=== PATIENT | female | born 1945 | race Asian ===

== ENCOUNTER 2017-06-13 21:38 | Emergency (ER) | payer OTHER, MEDICAID ==
[~2017-06-13] VITALS: Ht 154.9 cm; Wt 64.9 kg
[2017-06-13] MEDS ORDERED: FOLIC ACID1 MG ORAL (21:55)
[2017-06-13] MEDS ORDERED: LANTUS5 UNITS SUBQ (21:55)
[2017-06-13] MEDS ORDERED: CLONIDINE1 EAC1 TD (21:55)
[2017-06-13] MEDS ORDERED: METOPROLOL SUCC25 MG ORAL (21:55)
[2017-06-13] MEDS ORDERED: HYDROCHLOROTH12.5 M2 ORAL (21:55)
[2017-06-13] MEDS ORDERED: METFORMIN HCL500 M1 ORAL (21:55)
[2017-06-13] MEDS ORDERED: ASPIR 8181 MG ORAL (21:55)
[2017-06-13 22:09] VITALS: BP 171/49
[2017-06-13] MEDS ORDERED: Ketorolac 30mg Inj IV ONE (22:30)
[2017-06-13 22:35] LABS: BASOPHILS % (AUTO) 1.1 % (0.0-2.0); EOSINOPHILS % (AUTO) 2.3 % (0.0-3.0); LYMPHOCYTES % (AUTO) 38.6 % (20.0-45.0); MEAN CORPUSCULAR HEMOGLOBIN 28.8 PG (27.0-31.0); MEAN CORPUSCULAR HGB CONC 33.2 G/DL (32.0-36.0); MEAN CORPUSCULAR VOLUME 87 FL (80-99); MEAN PLATELET VOLUME 7.6 FL (6.5-10.1); MONOCYTES % (AUTO) 6.9 % (1.0-10.0); NEUTROPHILS % (AUTO) 51.1 % (45.0-75.0); PLATELET COUNT 251 K/UL (150-450); RED BLOOD COUNT 4.19 M/UL (4.20-5.40); RED CELL DISTRIBUTION WIDTH 12.1 % (11.6-14.8)
[2017-06-13 22:39] LABS: APPEARANCE,URINE CLEAR; KETONES,URINE NEGATIVE (NEGATIVE); LEUKOCYTE ESTERASE ,URINE 1+ (NEGATIVE); NITRITE,URINE NEGATIVE (NEGATIVE); PH,URINE 7 (4.5-8.0); PROTEIN,URINE NEGATIVE (NEGATIVE); UROBILINOGEN,URINE NORMAL MG/DL (0.0-1.0)
[2017-06-13 22:50] LABS: ALANINE AMINOTRANSFERASE 9 U/L (3-33); ALBUMIN/GLOBULIN RATIO 1.2 (1.0-2.7); ANION GAP 14 (5-15); ASPARTATE AMINO TRANSFERASE 18 U/L (5-40); CALCIUM 9.4 mg/dL (8.6-10.2); CARBON DIOXIDE 27 mEQ/L (20-30); CHLORIDE 97 mEQ/L (98-107); CREATININE 1.6 mg/dL (0.5-0.9); HEMOLYSIS 2; LIPASE 65 U/L (< 60); POTASSIUM 3.5 mEQ/L (3.4-4.9); SODIUM 138 mEQ/L (135-145); TOTAL PROTEIN 7.5 g/dL (6.6-8.7)
[2017-06-13 22:52] LABS: RBC,URINE 0-2 /HPF (0 - 2); SQUAMOUS EPITHELIAL CELL,UR FEW /LPF (NONE/OCC)
[2017-06-13 22:53] LABS: TRANSITIONAL EPI CELLS,URINE FEW /LPF
--- NOTE | 2017-06-13 23:06 | Emergency Room Report ---
History of Present Illness General Chief Complaint: Abdominal Pain Source: Patient Present Illness HPI Is a 72-year-old female with history hypertension. She presents with chief complaint of left upper quadrant pain. Onset for last 5 days. Worse with movement. Worse with palpation. No nausea no vomiting. No fever or chills. No diaphoresis. No chest pain. No nausea or vomiting. No rash. Pain is 7/10. Allergies: Coded Allergies: No Known Allergies (Unverified , 06/13/17) Patient History Past Medical History: see triage record, old chart reviewed, HTN Past Surgical History: Pertinent Family History: none Social History: Denies: smoking Last Menstrual Period: NONE Now: No Immunizations: other Reviewed Nursing Documentation: PMH: Agreed, PSxH: Agreed Nursing Documentation-PMH Hx Hypertension: Yes - HIGH CHOLESTEROL Hx Diabetes: Yes Review of Systems Eye: Denies: blurred vision, eye pain ENT: Denies: ear pain, nose congestion, throat swelling Respiratory: Denies: cough, shortness of breath Cardiovascular: Denies: chest pain, palpitations Gastrointestinal: Reports: abdominal pain, Denies: diarrhea, nausea, vomiting Musculoskeletal: Denies: back pain, joint pain Skin: Denies: rash Neurological: Denies: headache, numbness Endocrine: Denies: increased thirst, increased urine Hematologic/Lymphatic: Denies: easy bruising All Other Systems: negative except mentioned in HPI Physical Exam Vital Signs Date Time Temp Pulse Resp B/P Pulse Ox O2 Delivery O2 Flow Rate FiO2 06/13/17 21:48 97.7 77 18 195/78 100 Room Air by this with hypertension Sp02 EP Interpretation: reviewed, normal General Appearance: well appearing, no apparent distress, alert Head: normocephalic, atraumatic Eyes: bilateral eye EOMI, bilateral eye PERRL ENT: hearing grossly normal, normal pharynx Neck: full range of motion, supple, no meningismus Respiratory: chest non-tender, lungs clear, normal breath sounds Cardiovascular #1: regular rate, rhythm, no murmur Gastrointestinal: normal bowel sounds, non tender, no mass, no organomegaly, no bruit, non-distended Musculoskeletal: back normal, gait/station normal, normal range of motion Psychiatric: mood/affect normal Skin: warm/dry Medical Decision Making Diagnostic Impression: Primary Impression: Abdominal pain of unknown etiology Additional Impression: Hypertension Qualified Codes: I10 - Essential (primary) hypertension ER Course Patient presents with flank and abdominal pain. Most likely muscle skeletal. No evidence of any injury. No evidence of pancreatitis. No evidence of infection. Her kidney stones that the concert pain. Is not obstructing in its intensity. We'll discharge home. CT/MRI/US Diagnostic Results CT/MRI/US Diagnostic Results : Imaging Test Ordered: CT abdomen and pelvis Impression Read by radiologist. 9 mm right now obstructing kidney stone. No acute disease. Last Vital Signs Date Time Temp Pulse Resp B/P Pulse Ox O2 Delivery O2 Flow Rate FiO2 06/13/17 22:09 97.0 59 18 171/49 100 Room Air Scripts Tramadol Hcl* (ULTRAM*) 50 Mg Tablet 50 MG ORAL BID Y for For Pain, #20 TAB 0 Refills Prov: SAMSON PEDRO M.D. 06/13/17 Referrals: ISHAN WARD (PCP) Patient Instructions: Abdominal Pain, Adult Additional Instructions: Followup with your Dr. in 2 to 3 days. Return if symptom worsen. SAMSON PEDRO M.D. Jun 13, 2017 23:06
[2017-06-13 23:47] VITALS: BP 179/54
[2017-06-13] MEDS ORDERED: TRAMADOL HCL50 MG ORAL (23:57)
[2017-06-14] MEDS ORDERED: Norco 5mg/325mg tab ORAL ONE
[2017-06-14 00:10] VITALS: BP 179/54
--- NOTE | 2017-06-15 09:15 | Diagnostic Imaging Report ---
Indication: PAIN Technique: Continuous helical scanning was performed without any contrast material from the diaphragms through the pelvis per specific request of the ordering physician. Axial, sagittal, and coronal images were generated. Dose: Total Dose Length Product - DLP [address] Dose Index - CTDIvol(s) 14.36 mGy. Comparison: None Findings: The liver is unremarkable. The gallbladder is normal. The spleen is unremarkable. The pancreas is normal. Adrenal glands are unremarkable. There is a calcification in the cortex of the upper pole of the right kidney. This does not appear to be in the collecting system. It measures approximately 9 mm. The kidneys are otherwise unremarkable. Aorta is calcified. Retroperitoneum is free of adenopathy. Moderate fecal material is noted in the colon. The appendix is normal. Senescent changes are noted in the uterus. Ovaries are not enlarged. The bladder is normal. The bones are osteopenic. Impression: Atherosclerotic change. Osteopenia. Calcification in the upper pole of the right kidney. This does not appear to be within the collecting system. It may be postinflammatory. Otherwise negative. The above report is concordant with preliminary reading by [employer] . The CT scanner at [facility] is accredited by the [employer] and the scans are performed using protocols designed to limit radiation exposure to as low as reasonably achievable to attain images of sufficient resolution adequate for diagnostic evaluation.
== END 2017-06-14 00:10 | disposition home or self-care (01) ==
LOC: EMR 23:03
DX: R10.12 Left upper quadrant pain (principal); I10 Essential (primary) hypertension; E11.9 Type 2 diabetes mellitus without complications; E78.00 Pure hypercholesterolemia, unspecified
CPT/HCPCS: 36415; 74176; 80053; 81003; 83690; 85025; 96374; 99284; J1885

== ENCOUNTER 2017-10-07 13:22 | Emergency (ER) | payer MEDICAID, MEDICARE, OTHER ==
[~2017-10-07] VITALS: Ht 154.9 cm; Wt 63.0 kg
[~2017-10-07 13:22] MED LIST: ASPIR 8181 MG ORAL; CLONIDINE1 EAC1 TD; FOLIC ACID1 MG ORAL; HYDROCHLOROTH12.5 M2 ORAL; LANTUS5 UNITS SUBQ; METFORMIN HCL500 M1 ORAL; METOPROLOL SUCC25 MG ORAL; TRAMADOL HCL50 MG ORAL
[2017-10-07 13:45] VITALS: BP 136/47
[2017-10-07] MEDS ORDERED: cefTRIAXone 1 GM in NS 55 ML IVPB ONE (13:45)
--- NOTE | 2017-10-07 13:47 | Emergency Room Report ---
History of Present Illness General Chief Complaint: Back Pain-No Injury Source: Patient, Medical Record (GABRIELA ALCALA M.D.) Present Illness HPI 72YOF with 3 days polyuria, dysuria and now right back pain radiating down right leg History of DM - last A1C was 9 On metformin Denies abd pain, nausea/vomiting, diahrrhea, chest pain, SOB (GABRIELA ALCALA M.D.) Allergies: Coded Allergies: No Known Allergies (Unverified , 06/13/17) Patient History Past Medical History: DM Past Surgical History: none Pertinent Family History: none Social History: Denies: smoking, alcohol use, drug use Now: No : 7 Para: 7 Immunizations: UTD Reviewed Nursing Documentation: PMH: Agreed, PSxH: Agreed (GABRIELA ALCALA M.D.) Nursing Documentation-PMH Hx Hypertension: Yes - HIGH CHOLESTEROL Hx Diabetes: Yes (GABRIELA ALCALA M.D.) Review of Systems All Other Systems: negative except mentioned in HPI (GABRIELA ALCALA M.D.) Physical Exam Vital Signs Date Time Temp Pulse Resp B/P (MAP) Pulse Ox O2 Delivery O2 Flow Rate FiO2 10/07/17 13:29 100.8 79 15 151/63 95 Room Air Sp02 EP Interpretation: reviewed, normal General Appearance: normal inspection, well appearing, no apparent distress, alert, GCS 15, non-toxic Head: normocephalic, atraumatic Eyes: bilateral eye PERRL, bilateral eye EOMI ENT: normal ENT inspection, hearing grossly normal, normal voice Neck: normal inspection, full range of motion, supple, no bony tend Respiratory: normal inspection, lungs clear, normal breath sounds, no respiratory distress, no retraction, no wheezing Cardiovascular #1: regular rate, rhythm, no edema Gastrointestinal: normal inspection, normal bowel sounds, non tender, soft, no guarding, no hernia Genitourinary: CVA tenderness (R) Musculoskeletal: normal inspection, back normal, normal range of motion, Maurizio' s Sign negative Neurologic: normal inspection, alert, oriented x3, responsive, 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, motor strength/tone normal, speech normal Psychiatric: normal inspection, judgement/insight normal, mood/affect normal Skin: normal inspection, normal color, no rash Lymphatic: normal inspection (GABRIELA ALCALA M.D.) Medical Decision Making Diagnostic Impression: Primary Impression: Back pain Qualified Codes: M54.5 - Low back pain Additional Impression: UTI (urinary tract infection) Qualified Codes: N10 - Acute pyelonephritis ER Course 72YOF with fever, 3 days of back pain and dysuria Concern for pyelo vs obstructed stone Labs in progress at time of endorsement to Dr Martel (GABRIELA ALCALA M.D.) ER Course Hospital Course 72-year-old female presents to ED with back pain, fever Differential diagnoses include: UTI, cystitis, pyelonephritis, kidney stones Clinical course Patient initially seen and evaluated by Dr. Alcala; please see his note for full history and physical labs - leukocytosis noted, hbhematocrit stable, K 3.1, UA grossly positive CT A/P - no acute process, no evidence of kidney stones Antibiotics given. I offered patient option for admission but she states she preferred to be discharged at this time. Patient is afebrile, nontoxic appearing, tolerating by mouth. I believe patient will do well with outpatient therapy Diagnosis - back pain, UTI Stable and discharged home with prescriptions for Rx Tylenol, Keflex. Followup with PMD. Return to ED if symptoms recur or worsen Labs Test 10/07/17 13:50 10/07/17 14:02 Urine Color Pale yellow Urine Appearance Slightly cloudy Urine pH 6 (4.5-8.0) Urine Specific [place] 1.010 (1.005-1.035) Urine Protein Negative (NEGATIVE) Urine Glucose (UA) Negative (NEGATIVE) Urine Ketones Negative (NEGATIVE) Urine Occult Blood Negative (NEGATIVE) Urine Nitrite Negative (NEGATIVE) Urine Bilirubin 1+ (NEGATIVE) Urine Ictotest Negative Urine Urobilinogen Normal MG/DL (0.0-1.0) Urine Leukocyte Esterase 2+ (NEGATIVE) Urine RBC 0-2 /HPF (0 - 2) Urine WBC 5-10 /HPF (0 - 2) Urine Squamous Epithelial Cells Few /LPF (NONE/OCC) Urine Bacteria Few /HPF (NONE) White Blood Count 12.2 K/UL (4.8-10.8) Red Blood Count 3.90 M/UL (4.20-5.40) Hemoglobin 11.0 G/DL (12.0-16.0) Hematocrit 34.2 % (37.0-47.0) Mean Corpuscular Volume 88 FL (80-99) Mean Corpuscular Hemoglobin 28.2 PG (27.0-31.0) Mean Corpuscular Hemoglobin Concent 32.2 G/DL (32.0-36.0) Red Cell Distribution Width 11.6 % (11.6-14.8) Platelet Count 281 K/UL (150-450) Mean Platelet Volume 7.9 FL (6.5-10.1) Neutrophils (%) (Auto) 74.7 % (45.0-75.0) Lymphocytes (%) (Auto) 16.0 % (20.0-45.0) Monocytes (%) (Auto) 8.1 % (1.0-10.0) Eosinophils (%) (Auto) 0.6 % (0.0-3.0) Basophils (%) (Auto) 0.6 % (0.0-2.0) Sodium Level 132 MMOL/L (136-145) Potassium Level 3.1 MMOL/L (3.5-5.1) Chloride Level 95 MMOL/L (98-107) Carbon Dioxide Level 33 MMOL/L (21-32) Anion Gap 4 mmol/L (5-15) Blood Urea Nitrogen 18 mg/dL (7-18) Creatinine 1.2 MG/DL (0.55-1.30) Estimat Glomerular Filtration Rate mL/min (>60) Glucose Level 164 MG/DL (74-106) Calcium Level 8.6 MG/DL (8.5-10.1) Total Bilirubin 0.8 MG/DL (0.2-1.0) Aspartate Amino Transf (AST/SGOT) 22 U/L (15-37) Alanine Aminotransferase (ALT/SGPT) 18 U/L (12-78) Alkaline Phosphatase 57 U/L (46-116) Total Protein 7.6 G/DL (6.4-8.2) Albumin 3.4 G/DL (3.4-5.0) Globulin 4.2 g/dL Albumin/Globulin Ratio 0.8 (1.0-2.7) (KARYNA MARTEL M.D.) CT/MRI/US Diagnostic Results CT/MRI/US Diagnostic Results : Imaging Test Ordered: CT A/P Impression no acute process (KARYNA MARTEL M.D.) Last Vital Signs Date Time Temp Pulse Resp B/P (MAP) Pulse Ox O2 Delivery O2 Flow Rate FiO2 10/07/17 13:29 100.8 79 15 151/63 95 Room Air Status: improved (GABRIELA ALCALA M.D.) Status: improved (KARYNA MARTEL M.D.) Condition: Stable Scripts Acetaminophen* (TYLENOL EXTRA STRENGTH*) 500 Mg Tablet 500 MG ORAL Q8H Y for Prn Headache/Temp > 101, #30 TAB 0 Refills Prov: KARYNA MARTEL M.D. 10/07/17 Cephalexin* (KEFLEX*) 500 Mg Capsule 500 MG ORAL Q6H, #28 CAP 0 Refills Prov: KARYNA MARTEL M.D. 10/07/17 GABRIELA ALCALA M.D. Oct 07, 2017 13:47 KARYNA MARTEL M.D. Oct 07, 2017 15:48
[2017-10-07 14:15] LABS: BASOPHILS % (AUTO) 0.6 % (0.0-2.0); EOSINOPHILS % (AUTO) 0.6 % (0.0-3.0); MEAN CORPUSCULAR HEMOGLOBIN 28.2 PG (27.0-31.0); MEAN CORPUSCULAR HGB CONC 32.2 G/DL (32.0-36.0); MEAN CORPUSCULAR VOLUME 88 FL (80-99); MEAN PLATELET VOLUME 7.9 FL (6.5-10.1); MONOCYTES % (AUTO) 8.1 % (1.0-10.0); NEUTROPHILS % (AUTO) 74.7 % (45.0-75.0); PLATELET COUNT 281 K/UL (150-450); RED CELL DISTRIBUTION WIDTH 11.6 % (11.6-14.8); WHITE BLOOD COUNT 12.2 K/UL (4.8-10.8)
[2017-10-07 14:28] LABS: KETONES,URINE NEGATIVE (NEGATIVE); LEUKOCYTE ESTERASE ,URINE 2+ (NEGATIVE); NITRITE,URINE NEGATIVE (NEGATIVE); PH,URINE 6 (4.5-8.0); PROTEIN,URINE NEGATIVE (NEGATIVE); UROBILINOGEN,URINE NORMAL MG/DL (0.0-1.0)
[2017-10-07 14:33] LABS: APPEARANCE,URINE SLIGHTLY CLOUDY
--- NOTE | 2017-10-07 14:44 | Diagnostic Imaging Report ---
Indication: Right-sided flank pain, 3 days of polyuria dysuria,] radiating down right leg Technique: Spiral acquisitions obtained through the abdomen and pelvis. No oral or IV contrast utilized, per urinary stone protocol. Multiplanar reconstructions were generated. Total dose length product 645 mGycm. CTDIvol(s) 13 mGy. Dose reduction achieved using automated exposure control Comparison: 06/13/2017 Findings: There is a calcification again demonstrated in the left renal sinus. This is more likely vascular than within the collecting system. No hydronephrosis. No ureteral calculi. No left renal or ureteral calculi. No bladder calculi. Lack of IV contrast limits assessment of the renal parenchyma. No gross renal parenchymal mass or cyst demonstrated. Lack of IV contrast was assessment of the other solid organs. The liver, gallbladder, bile ducts, pancreas, spleen, adrenals are unremarkable. No retroperitoneal or mesenteric mass or adenopathy. No pelvic mass or adenopathy. There are uterine arcuate artery calcifications. The included lung bases demonstrate some focal pleural thickening posteriorly on the right. This is above the area of the imaging volume of the previous exams and cannot be compared. There is some scarring in the left lung base. The bones are unremarkable except for degenerative changes of the lower lumbar spine and lower thoracic spine The appendix is normal. There is colonic diverticulosis. No evidence of diverticulitis. No small bowel distention. No free or loculated intraperitoneal air or fluid. No significant interim change Impression: No acute process. Negative for evidence of urinary stone disease or obstructive uropathy Right hemithorax pleural thickening and left basilar scarring Diverticulosis. No evidence of diverticulitis Degenerative spondylosis incidentally noted The CT scanner at [facility] is accredited by the [employer] and the scans are performed using protocols designed to limit radiation exposure to as low as reasonably achievable to attain images of sufficient resolution adequate for diagnostic evaluation.
[2017-10-07 14:45] LABS: BACTERIA,URINE FEW /HPF; ICTOTEST NEGATIVE; RBC,URINE 0-2 /HPF (0 - 2); SQUAMOUS EPITHELIAL CELL,UR FEW /LPF (NONE/OCC)
[2017-10-07 14:59] LABS: ALANINE AMINOTRANSFERASE 18 U/L (12-78); ALBUMIN/GLOBULIN RATIO 0.8 (1.0-2.7); ANION GAP 4 mmol/L (5-15); ASPARTATE AMINO TRANSFERASE 22 U/L (15-37); CALCIUM 8.6 MG/DL (8.5-10.1); CARBON DIOXIDE 33 MMOL/L (21-32); CHLORIDE 95 MMOL/L (98-107); CREATININE 1.2 MG/DL (0.55-1.30); POTASSIUM 3.1 MMOL/L (3.5-5.1); SODIUM 132 MMOL/L (136-145); TOTAL PROTEIN 7.6 G/DL (6.4-8.2)
[2017-10-07 15:10] VITALS: BP 124/48
[2017-10-07] MEDS ORDERED: KEFLEX500 MG ORAL (15:22)
[2017-10-07] MEDS ORDERED: TYLENOL EXTRA500 MG ORAL (15:22)
[2017-10-07 15:35] VITALS: BP 128/56
== END 2017-10-07 15:37 | disposition home or self-care (01) ==
LOC: EMR 13:55
DX: M54.9 Dorsalgia, unspecified (principal); N39.0 Urinary tract infection, site not specified; I10 Essential (primary) hypertension; E11.9 Type 2 diabetes mellitus without complications; K57.30 Diverticulosis of large intestine without perforation or abscess without bleeding
CPT/HCPCS: 36415; 74176; 80053; 81003; 85025; 96365; 99284; J0696; J8499

== ENCOUNTER 2018-03-31 23:33 | Emergency (ER) | payer MEDICARE ==
[~2018-03-31] VITALS: Ht 154.9 cm; Wt 59.4 kg
[~2018-03-31 23:33] MED LIST changes: +KEFLEX500 MG ORAL; +TYLENOL EXTRA500 MG ORAL
[2018-04-01] MEDS ORDERED: Nitroglycerin 2% oint pkt TOPIC ONE (00:15)
[2018-04-01 00:22] LABS: APPEARANCE,URINE CLEAR; BILIRUBIN, URINE NEGATIVE (NEGATIVE); COLOR,URINE PALE YELLOW; GLUCOSE, URINE (UA) NEGATIVE (NEGATIVE); KETONES,URINE NEGATIVE (NEGATIVE); LEUKOCYTE ESTERASE ,URINE NEGATIVE (NEGATIVE); NITRITE,URINE NEGATIVE (NEGATIVE); PH,URINE 5 (4.5-8.0); PROTEIN,URINE NEGATIVE (NEGATIVE); UROBILINOGEN,URINE NORMAL MG/DL (0.0-1.0)
[2018-04-01 00:41] LABS: BASOPHILS % (AUTO) 1.2 % (0.0-2.0); EOSINOPHILS % (AUTO) 2.1 % (0.0-3.0); HEMATOCRIT 31.7 % (37.0-47.0); HEMOGLOBIN 10.3 G/DL (12.0-16.0); LYMPHOCYTES % (AUTO) 34.5 % (20.0-45.0); MEAN CORPUSCULAR VOLUME 85 FL (80-99); NEUTROPHILS % (AUTO) 54.3 % (45.0-75.0); PLATELET COUNT 211 K/UL (150-450); RED BLOOD COUNT 3.71 M/UL (4.20-5.40); RED CELL DISTRIBUTION WIDTH 12.3 % (11.6-14.8)
[2018-04-01 01:01] LABS: INR 0.9 (0.9-1.1)
[2018-04-01 01:04] LABS: ANION GAP 6 mmol/L (5-15); BLOOD UREA NITROGEN 29 mg/dL (7-18); CALCIUM 8.8 MG/DL (8.5-10.1); CARBON DIOXIDE 28 MMOL/L (21-32); CHLORIDE 101 MMOL/L (98-107); CREATININE 1.3 MG/DL (0.55-1.30); POTASSIUM 3.3 MMOL/L (3.5-5.1); SODIUM 135 MMOL/L (136-145)
[2018-04-01 01:12] LABS: ALANINE AMINOTRANSFERASE 25 U/L (12-78); ALBUMIN 3.2 G/DL (3.4-5.0); ALBUMIN/GLOBULIN RATIO 0.9 (1.0-2.7); ALKALINE PHOSPHATASE 58 U/L (46-116); ASPARTATE AMINO TRANSFERASE 23 U/L (15-37); BILIRUBIN,TOTAL 0.4 MG/DL (0.2-1.0); CREATINE KINASE 107 U/L (26-308)
[2018-04-01 01:35] VITALS: BP 128/55
--- NOTE | 2018-04-01 03:40 | Emergency Room Report ---
History of Present Illness General Chief Complaint: Chest Pain Source: Patient Present Illness HPI The patient presents with left-sided chest pain. It's been intermittent. Is worsened with exertion. She denies having prior cardiac studies such as treadmill or catheterization. She is quite anxious when she feels this pain. It improves with a resting. Pain rated at 8/10, radiates somewhat to side of chest. No NV or diaphoresis. The patient denies any fever, cough sore throat, in bowel habits. The patient's risk factors are diabetes, hypertension and high cholesterol. She does not smoke. She is living by herself and is quite anxious about going home. Allergies: Coded Allergies: No Known Allergies (Unverified , 06/13/17) Patient History Past Medical History: see triage record Social History: Denies: smoking, alcohol use, drug use Social History Narrative lives by herself as in hospital Last Menstrual Period: NA Reviewed Nursing Documentation: PMH: Agreed; PSxH: Agreed Nursing Documentation-PMH Hx Hypertension: Yes - HIGH CHOLESTEROL Hx Diabetes: Yes Review of Systems All Other Systems: negative except mentioned in HPI Physical Exam Vital Signs Date Time Temp Pulse Resp B/P (MAP) Pulse Ox O2 Delivery O2 Flow Rate FiO2 03/31/18 23:38 97.7 69 18 161/65 98 Room Air 97.7 Sp02 EP Interpretation: reviewed, normal General Appearance: well appearing, no apparent distress, GCS 15 Head: normocephalic Eyes: bilateral eye normal inspection, bilateral eye PERRL ENT: moist mucus membranes Neck: supple Respiratory: lungs clear, normal breath sounds Cardiovascular #1: regular rate, rhythm Cardiovascular #2: 2+ radial (R) Gastrointestinal: normal inspection, normal bowel sounds, non tender, no mass, non-distended Musculoskeletal: back normal, gait/station normal, normal range of motion Neurologic: alert, oriented x3, grossly normal Psychiatric: anxious Skin: normal inspection, warm/dry Medical Decision Making Diagnostic Impression: Primary Impression: Chest pain Qualified Codes: R07.9 - Chest pain, unspecified ER Course The patient presents with left-sided chest pain is exertional. She has several risk factors for CAD. Differential includes acute myocardial infarction, acute coronary syndrome, unstable angina, chest wall pain, anxiety, costochondritis, pleurisy amongst others. Evaluation will be with EKG, chest x-ray and labs. The patient will be treated with aspirin, nitro-paste and cardiac observation. EKG with LVH no injury. Chest x-ray shows calcifications in the aorta. Labs are remarkable for and normal troponin. The patient is pain-free however she is concerned and due to risk factors we need to exclude the possibility of acute coronary syndrome. She was presented to Dr. Puneet Srinivasan and accepted for transfer. She stated to me she was pain free prior to transfer. Patient improved, but needing transfer for further evaluation. Laboratory Tests Test 04/01/18 00:01 04/01/18 00:20 Urine Color Pale yellow Urine Appearance Clear Urine pH 5 (4.5-8.0) Urine Specific [place] 1.015 (1.005-1.035) Urine Protein Negative (NEGATIVE) Urine Glucose (UA) Negative (NEGATIVE) Urine Ketones Negative (NEGATIVE) Urine Occult Blood Negative (NEGATIVE) Urine Nitrite Negative (NEGATIVE) Urine Bilirubin Negative (NEGATIVE) Urine Urobilinogen Normal MG/DL (0.0-1.0) Urine Leukocyte Esterase Negative (NEGATIVE) White Blood Count 7.0 K/UL (4.8-10.8) Red Blood Count 3.71 M/UL (4.20-5.40) L Hemoglobin 10.3 G/DL (12.0-16.0) L Hematocrit 31.7 % (37.0-47.0) L Mean Corpuscular Volume 85 FL (80-99) Mean Corpuscular Hemoglobin 27.7 PG (27.0-31.0) Mean Corpuscular Hemoglobin Concent 32.4 G/DL (32.0-36.0) Red Cell Distribution Width 12.3 % (11.6-14.8) Platelet Count 211 K/UL (150-450) Mean Platelet Volume 7.3 FL (6.5-10.1) Neutrophils (%) (Auto) 54.3 % (45.0-75.0) Lymphocytes (%) (Auto) 34.5 % (20.0-45.0) Monocytes (%) (Auto) 8.0 % (1.0-10.0) Eosinophils (%) (Auto) 2.1 % (0.0-3.0) Basophils (%) (Auto) 1.2 % (0.0-2.0) Prothrombin Time 9.9 SEC (9.30-11.50) Prothrombin Time INR 0.9 (0.9-1.1) PTT 31 SEC (23-33) Sodium Level 135 MMOL/L (136-145) L Potassium Level 3.3 MMOL/L (3.5-5.1) L Chloride Level 101 MMOL/L (98-107) Carbon Dioxide Level 28 MMOL/L (21-32) Anion Gap 6 mmol/L (5-15) Blood Urea Nitrogen 29 mg/dL (7-18) H Creatinine 1.3 MG/DL (0.55-1.30) Estimate Glomerular Filtration Rate mL/min (>60) Glucose Level 165 MG/DL (74-106) H Calcium Level 8.8 MG/DL (8.5-10.1) Total Bilirubin 0.4 MG/DL (0.2-1.0) Aspartate Amino Transferase (AST) 23 U/L (15-37) Alanine Aminotransferase (ALT) 25 U/L (12-78) Alkaline Phosphatase 58 U/L (46-116) Total Creatine Kinase 107 U/L (26-308) Troponin I 0.000 ng/mL (0.000-0.056) Pro-B-Type Natriuretic Peptide 391 pg/mL (0-125) H Total Protein 6.9 G/DL (6.4-8.2) Albumin 3.2 G/DL (3.4-5.0) L Globulin 3.7 g/dL Albumin/Globulin Ratio 0.9 (1.0-2.7) L EKG Diagnostic Results Rate: normal Rhythm: NSR ST Segments: no acute changes - Left ventricular hypertrophy Rhythm Strip Diag. Results EP Interpretation: yes Rhythm: NSR, no PVC's, no ectopy Chest X-Ray Diagnostic Results Chest X-Ray Diagnostic Results : Chest X-Ray Ordered: Yes # of Views/Limited/Complete: 1 View EP Interpretation: Yes Interpretation: no consolidation, no effusion, no pneumothorax, other - Ca Impression: No acute disease Electronically Signed by: Electronically signed by Kevin Werner MD Last Vital Signs Date Time Temp Pulse Resp B/P (MAP) Pulse Ox O2 Delivery O2 Flow Rate FiO2 04/01/18 07:01 98.4 62 18 139/79 100 Room Air 98.4 Status: improved Disposition: XFER SHT-TRM HOSP Condition: Serious - Stable for transfer Referrals: [facility] (PCP) Kevin Werner M.D. April 01, 2018 03:40
[2018-04-01 04:01] VITALS: BP 146/53
[2018-04-01 06:50] VITALS: BP 139/79
[2018-04-01 07:01] VITALS: BP 139/79
--- NOTE | 2018-04-01 11:13 | Diagnostic Imaging Report ---
Indication: Chest pain Comparison: None A single view chest radiograph was obtained. Findings: No definite infiltrate or pulmonary vascular congestion identified. The heart is borderline enlarged. The aorta is mildly enlarged consistent with atherosclerotic vascular disease. The bones are osteopenic. Impression: No acute disease
--- NOTE | 2018-04-01 18:11 | Cardiology Report ---
APPROVED REPORT EKG Measurement Heart [id number] Normal sinus rhythm Minimal voltage criteria for LVH, may be normal variant Borderline ECG
== END 2018-04-01 07:02 | disposition short-term general hospital (02) ==
LOC: EMR 04-01 00:20
DX: R07.89 Other chest pain (principal); E11.9 Type 2 diabetes mellitus without complications; I10 Essential (primary) hypertension; E78.00 Pure hypercholesterolemia, unspecified
CPT/HCPCS: 36415; 71045; 80053; 81003; 82550; 83880; 84484; 85025; 85610; 85730; 93005; 99285

== ENCOUNTER 2019-07-23 01:03 | Emergency (ER) | payer MEDICARE ==
[~2019-07-23] VITALS: Ht 157.5 cm; Wt 62.6 kg
[~2019-07-23 01:03] MED LIST changes: +CLONIDINE1 EAC1 ORAL; -CLONIDINE1 EAC1 TD
[2019-07-23] MEDS ORDERED: Aspirin Baby 81mg ORAL ONE (01:30)
--- NOTE | 2019-07-23 01:32 | Emergency Room Report ---
History of Present Illness General Chief Complaint: To Be Triaged Present Illness HPI Disclaimer: Please note that this report is being documented using DRAGON technology. This can lead to erroneous entry secondary to incorrect interpretation by the dictating instrument. HPI: 74-year-old female with a history of right breast cancer currently undergoing radiation therapy presents for evaluation of right-sided chest pain. Patient had a treatment of radiation for her right-sided breast cancer today and several hours later began to feel left-sided chest pressure and shortness of breath. The pain does not radiate. She continues to complain of moderate chest pain and tightness in the chest. She states she had a normal exercise stress test performed 2 years ago but never had a cardiac cath. She denies any abdominal cramping, diaphoresis, vomiting, lightheadedness, headache, recent URI symptoms, skin changes. PMH: Hypertension, hyperlipidemia, diabetes PSH: Lumpectomy Allergies: Denies Social Hx: Never smoker Allergies: Coded Allergies: No Known Allergies (Unverified , 06/13/17) Nursing Documentation-PMH Hx Hypertension: Yes - HIGH CHOLESTEROL Hx Diabetes: Yes Review of Systems All Other Systems: negative except mentioned in HPI Physical Exam General: Awake and alert, appears anxious, frightened HEENT: NC/AT. EOMI. PERRLA. Moist mucous membranes Chest Wall: No tenderness, no deformity Cardiovascular: RRR. S1 and S2 normal. No murmur appreciated Resp: Normal work of breathing. No cough, wheezing or crackles appreciated Abdomen: Abdomen is soft, nondistended. Nontender Skin: Intact. No abrasions, laceration or rash over the exposed skin MSK: Normal tone and bulk. Moving all extremities. No obvious deformity. Neuro: Awake and alert. Mentating appropriately. Medical Decision Making Diagnostic Impression: Primary Impression: Chest pain Additional Impressions: Hypokalemia Mediastinal lymphadenopathy Esophageal thickening ER Course 74-year-old female with history of active cancer currently undergoing radiation therapy presents for evaluation of chest pain. Differential includes was not limited to angina, ACS, PE, bronchitis, pneumonia, anxiety. Given the patient' s cancer history must rule out ACS and PE first. Patient will be sent for CTA of the chest and have a comprehensive chest pain work-up. Her EKG shows sinus rhythm with no acute ischemic changes in the ST segments and a questionable inverted T wave versus U wave in lead III. She received aspirin. Laboratory Tests Test 07/23/19 01:35 White Blood Count 6.1 K/UL (4.8-10.8) Red Blood Count 4.15 M/UL (4.20-5.40) L Hemoglobin 11.5 G/DL (12.0-16.0) L Hematocrit 35.1 % (37.0-47.0) L Mean Corpuscular Volume 84 FL (80-99) Mean Corpuscular Hemoglobin 27.7 PG (27.0-31.0) Mean Corpuscular Hemoglobin Concent 32.8 G/DL (32.0-36.0) Red Cell Distribution Width 11.8 % (11.6-14.8) Platelet Count 241 K/UL (150-450) Mean Platelet Volume 6.6 FL (6.5-10.1) Neutrophils (%) (Auto) 65.1 % (45.0-75.0) Lymphocytes (%) (Auto) 22.2 % (20.0-45.0) Monocytes (%) (Auto) 9.3 % (1.0-10.0) Eosinophils (%) (Auto) 2.2 % (0.0-3.0) Basophils (%) (Auto) 1.2 % (0.0-2.0) Prothrombin Time 10.0 SEC (9.30-11.50) Prothrombin Time INR 0.9 (0.9-1.1) PTT 29 SEC (23-33) Sodium Level 137 MMOL/L (136-145) Potassium Level 2.9 MMOL/L (3.5-5.1) L Chloride Level 102 MMOL/L (98-107) Carbon Dioxide Level 29 MMOL/L (21-32) Anion Gap 6 mmol/L (5-15) Blood Urea Nitrogen 23 mg/dL (7-18) H Creatinine 1.2 MG/DL (0.55-1.30) Estimate Glomerular Filtration Rate mL/min (>60) Glucose Level 135 MG/DL (74-106) H Calcium Level 9.4 MG/DL (8.5-10.1) Total Bilirubin 0.5 MG/DL (0.2-1.0) Aspartate Amino Transferase (AST) 21 U/L (15-37) Alanine Aminotransferase (ALT) 14 U/L (12-78) Alkaline Phosphatase 63 U/L (46-116) Total Creatine Kinase 113 U/L (26-308) Creatine Kinase MB 0.9 NG/ML (0.0-3.6) Creatine Kinase MB Relative Index 0.7 Troponin I 0.000 ng/mL (0.000-0.056) Pro-B-Type Natriuretic Peptide 409 pg/mL (0-125) H Total Protein 7.4 G/DL (6.4-8.2) Albumin 3.5 G/DL (3.4-5.0) Globulin 3.9 g/dL Albumin/Globulin Ratio 0.9 (1.0-2.7) L EKG Diagnostic Results EKG Time: 01:30 Rate: normal Rhythm: NSR ST Segments: no acute changes Other Impression Normal intervals, slight left axis, inverted T wave III Rhythm Strip Diag. Results Rhythm Strip Time: 01:30 EP Interpretation: yes Rate: 60s Rhythm: NSR Chest X-Ray Diagnostic Results Chest X-Ray Diagnostic Results : # of Views/Limited/Complete: 1 View Indication: Chest Pain EP Interpretation: Yes PA Xray: Interpretation reviewed Interpretation: no consolidation, no effusion, no pneumothorax, no acute cardiopulmonary disease Impression: Other - Surgical clips in the right breast Electronically Signed by: Electronically signed by Dr. Lalo Davies Reevaluation Time: 05:12 Status: improved Reevaluation Impression Patient's chest pain improved. Troponin is negative, BN peptide slightly elevated. Chest x-ray shows no pneumonia and CTA of the chest shows no pulmonary embolism but does show multiple indeterminate mediastinal lymph nodes as well as thickening of the distal third of the esophagus. The nodes are consistent with the patient's cancer history but may require further work-up in comparison with outside imaging. Patient's chest pain is almost completely resolved. She did receive aspirin. Her potassium is low 2.9 is receiving IV and oral repletion. Can admit for hypokalemia and chest pain work-up. Patient will be transferred per her insurance policy Disposition: ADMITTED INPATIENT Condition: Serious Lalo Davies MD Jul 23, 2019 01:32
[2019-07-23 01:45] VITALS: BP 144/78
--- NOTE | 2019-07-23 01:45 | NUR ---
ER Nurse Note: Pt walked in from home c/o RT side chest pain since afternoon. Pt stated she went to chemo therapy and felt pressure on chest shortly after. Pt denies pain radiating. Pain 5/. RA, no signs of distress. Will continue to montior.
[2019-07-23 01:49] LABS: BASOPHILS % (AUTO) 1.2 % (0.0-2.0); EOSINOPHILS % (AUTO) 2.2 % (0.0-3.0); HEMATOCRIT 35.1 % (37.0-47.0); HEMOGLOBIN 11.5 G/DL (12.0-16.0); LYMPHOCYTES % (AUTO) 22.2 % (20.0-45.0); MEAN CORPUSCULAR VOLUME 84 FL (80-99); MONOCYTES % (AUTO) 9.3 % (1.0-10.0); NEUTROPHILS % (AUTO) 65.1 % (45.0-75.0); PLATELET COUNT 241 K/UL (150-450); RED BLOOD COUNT 4.15 M/UL (4.20-5.40); RED CELL DISTRIBUTION WIDTH 11.8 % (11.6-14.8); WHITE BLOOD COUNT 6.1 K/UL (4.8-10.8)
[2019-07-23 02:13] LABS: ANION GAP 6 mmol/L (5-15); BLOOD UREA NITROGEN 23 mg/dL (7-18); CALCIUM 9.4 MG/DL (8.5-10.1); CARBON DIOXIDE 29 MMOL/L (21-32); CHLORIDE 102 MMOL/L (98-107); CREATININE 1.2 MG/DL (0.55-1.30); INR 0.9 (0.9-1.1); POTASSIUM 2.9 MMOL/L (3.5-5.1); SODIUM 137 MMOL/L (136-145)
[2019-07-23 02:26] LABS: ALANINE AMINOTRANSFERASE 14 U/L (12-78); ALBUMIN 3.5 G/DL (3.4-5.0); ALBUMIN/GLOBULIN RATIO 0.9 (1.0-2.7); ALKALINE PHOSPHATASE 63 U/L (46-116); ASPARTATE AMINO TRANSFERASE 21 U/L (15-37); BILIRUBIN,TOTAL 0.5 MG/DL (0.2-1.0); CKMB 0.9 NG/ML (0.0-3.6); CREATINE KINASE 113 U/L (26-308)
--- NOTE | 2019-07-23 02:38 | Diagnostic Imaging Report ---
EXAM: XR Chest, 1 View CLINICAL HISTORY: CP TECHNIQUE: Frontal view of the chest. COMPARISON: 04/01/18 IMPRESSION: Mildly enlarged heart. No consolidation or pleural effusion. Multiple clips in the right lateral chest wall.
[2019-07-23] MEDS ORDERED: Isovue-370 150ml vial INJ PRN (02:45)
[2019-07-23 03:26] VITALS: BP 145/72
--- NOTE | 2019-07-23 03:26 | NUR ---
ED Nurse Note: PATIENT RESTING COMFORTABLY IN BED WITH NAD. AO4. RESPIRATIONS EVEN AND UNLABORED.
--- NOTE | 2019-07-23 03:36 | NUR ---
ED Nurse Note: PT DOWN TO IMAGING.
[2019-07-23 04:42] VITALS: BP 142/74
--- NOTE | 2019-07-23 04:43 | NUR ---
ER Nurse Note: All orders completed per ERMD orders. Pt a&ox4, VSS, RA, no signs of distress. LT AC IV infusing potassium. Pt ambualtory, skin intact. All safety measures met; will continue to montior.
--- NOTE | 2019-07-23 07:15 | NUR ---
ER Nurse Note: Report given to Jonny for continuity of care. Pt aox4, VSS, RA, no signs of distress. All orders completed per ERMD orders. Pending transfer.
[2019-07-23 07:18] VITALS: BP 137/50
[2019-07-23] MEDS ORDERED: METOPROLOL TART50 M1 ORAL (07:18)
[2019-07-23] MEDS ORDERED: SIMVASTATIN20 MG ORAL (07:18)
[2019-07-23] MEDS ORDERED: DIOVAN HCT 3201 EAC1 ORAL (07:18)
[2019-07-23] MEDS ORDERED: HYDRALAZINE HC100 MG ORAL (07:18)
--- NOTE | 2019-07-23 07:20 | NUR ---
ED Nurse Note: Received report from Leidy PADGETT. Patient is alert and oriented, verbally responsive. Denies any pain at this time. No SOB. VSS. Waiting for transportation.
--- NOTE | 2019-07-23 08:27 | NUR ---
ED Nurse Note: reports given to DAYRON Hernandez [facility]. pt transferred by [facility].
[2019-07-23 08:28] VITALS: BP 122/98
--- NOTE | 2019-07-26 11:36 | Cardiology Report ---
APPROVED REPORT EKG Measurement Heart [id number] [place] [id number] Normal sinus rhythm Prolonged QT Abnormal ECG
== END 2019-07-23 08:29 | disposition short-term general hospital (02) ==
LOC: EMR 02:00
DX: C50.911 Malignant neoplasm of unspecified site of right female breast (principal); R07.9 Chest pain, unspecified; E87.6 Hypokalemia; R59.0 Localized enlarged lymph nodes; K22.9 Disease of esophagus, unspecified; I10 Essential (primary) hypertension; E78.5 Hyperlipidemia, unspecified; E11.9 Type 2 diabetes mellitus without complications
CPT/HCPCS: 36415; 71045; 71275; 80053; 82550; 82553; 83880; 84484; 85025; 85610; 85730; 93005; 96365; 99284; J3480; Q9967; J8499